=== PATIENT | female | born 1940 | race Caucasian/White ===

== ENCOUNTER 2017-02-01 13:41 | Inpatient (IN) | payer MEDICARE, MEDICAID ==
[~2017-02-01] VITALS: Ht 154.9 cm; Wt 70.6 kg
--- NOTE | ~2017-02-01 | ENPV ---
Vascular Lower Extremities DVT Study Procedure Demographics Patient Name DANITZA SANTACRUZ Date of Study 02/01/2017 Patient Number [id number] Gender Female Date of 1940 Age 76 Visit Number [id number] Height 60 Accession Number [id number] Weight 168.43 Referring Saul Luna MD Interpreting Rodney Johns MD Physician Dino Reyes MD Physician Physician Ordering Physician Dino Reyes MD Engraving Supervisor Baker Apprentice Chet Sorenson T, [facility] Conclusions Summary No evidence of deep vein thrombosis or superficial thrombophlebitis in the left lower extremity. Procedure Type of Study: Veins:Lower Extremities DVT Study, Lower Extremity Left. Indications for Study:Swelling and Pain. Appropriate Use Criteria:6 Allergies - Sulfa. - Other:(hydralazine). Patient Status:Routine. Study Location:ER. Technical Quality:Adequate visualization. - Preliminary reported to:Amparo Oconnor. Risk Factors - The patient's risk factor(s) include: insulin-treated diabetes mellitus and treated arterial hypertension. - The patient's last creatinine was 0.9 mg/dl. Velocities are measured in cm/s ; Diameters are measured in cm Right Lower Extremities DVT Study Measurements Right 2D and Doppler Measurements + + + + +------+------+ + !Location !Visualized!Compressibility!Thrombosis!Signal!Reflux!Reflux ! ! ! ! ! ! ! !(sec) ! + + + + +------+------+ + !GSV Thigh !Yes !Yes !None !Phasic! ! ! + + + + +------+------+ + !Common !Yes !Yes !None !Phasic! ! ! !Femoral ! ! ! ! ! ! ! + + + + +------+------+ + Left Lower Extremities DVT Study Measurements Left 2D and Doppler Measurements + + + + +------+------+ + !Location !Visualized!Compressibility!Thrombosis!Signal!Reflux!Reflux ! ! ! ! ! ! ! !(sec) ! + + + + +------+------+ + !GSV Thigh !Yes !Yes !None !Phasic! ! ! + + + + +------+------+ + !Common !Yes !Yes !None !Phasic! ! ! !Femoral ! ! ! ! ! ! ! + + + + +------+------+ + !Prox !Yes !Yes !None !Phasic! ! ! !Femoral ! ! ! ! ! ! ! + + + + +------+------+ + !Mid Femoral!Yes !Yes !None !Phasic! ! ! + + + + +------+------+ + !Dist !Yes !Yes !None !Phasic! ! ! !Femoral ! ! ! ! ! ! ! + + + + +------+------+ + !Popliteal !Yes !Yes !None !Phasic! ! ! + + + + +------+------+ + !PTV !Yes !Yes !None !Phasic! ! ! + + + + +------+------+ + !Peroneal !Yes !Yes !None !Phasic! ! ! + + + + +------+------+ + Signature dtt: Mckinley Stevens dtgrzegorz: 02/01/17 1619 Physician Self Edit
--- NOTE | ~2017-02-01 | HP ---
PATIENT'S NAME: DANITZA SANTACRUZ [facility] AGE: 76 Y [address] ROOM: [place] [address] LOCATION: GPCU ADMIT DATE: 02/01/2017 History & Physical DISCHARGE DATE: FAMILY PHYSICIAN: Jeremy Hughes MD ATTENDING PHYSICIAN: Gissel GRAYSON DATE OF SERVICE: CHIEF COMPLAINT: Left foot pain. HISTORY OF PRESENT ILLNESS: The patient is a 76-year-old female with past medical history of breast cancer status post mastectomy and radiation, hypertension, and CVA with mild left- sided weakness and memory loss, who presented here with fever and left foot pain. The patient was brought in by family members including son and daughter. According to her daughter, the patient was admitted at [facility] on last and discharged last Friday. The patient was initially admitted at [place] with fatigue, fever, and weakness. The patient was treated there with IV fluids and antibiotic for UTI. The patient was discharged home, and the patient currently stays with daughter. Daughter reports that the patient has been having intermittent fever for the past month or so. Etiology of her fever has not been clearly identified yet. Daughter reports that since her discharge, the patient had fever. Her temperature today was 100.7, and also the patient was noted to have left foot pain. Daughter reports that she has noted redness and swelling around her dorsum of the foot. She noticed that yesterday. She also reports that today, the patient could not bear weight on her left foot. The patient denies any trauma or cut around foot and discharge. She also denies chest pain, shortness of breath, abdominal pain, nausea, vomiting, diarrhea, and constipation. The patient has been losing weight lately due to poor appetite. She also reports of generalized fatigue. MEDICAL HISTORY: 1. Breast cancer, status post mastectomy and radiation. 2. Stroke in 2000 with mild left-sided weakness. 3. Hypertension. 4. Diabetes mellitus, type 2. 5. Nocturnal hypoxia and uses oxygen at night. SURGICAL HISTORY: Mastectomy. FAMILY HISTORY: Father had dementia and mother had coronary artery disease. PATIENT'S NAME: DANITZA SANTACRUZ [facility] AGE: 76 Y [address] ROOM: [place] [address] LOCATION: GPCU ADMIT DATE: 02/01/2017 History & Physical DISCHARGE DATE: FAMILY PHYSICIAN: Jeremy Hughes MD ATTENDING PHYSICIAN: Gissel GRAYSON SOCIAL HISTORY: Distant history of smoking, last smoked in 1989. 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 MEDICATIONS: Currently being reconciled. REVIEW OF SYSTEMS: All systems have been reviewed, and are negative except for what I mentioned in the HPI. PHYSICAL EXAMINATION: VITAL SIGNS: Temperature was 100.9 on admission, blood pressure was 154/91, respiratory rate was 15, pulse was 80, and saturating 90% on room air. GENERAL APPEARANCE: The patient was alert and awake, in no acute distress. HEAD: Normocephalic and atraumatic. NOSE: No nasal discharge. MOUTH: Moist oral mucosa. EARS: No ear discharge. CHEST: Clear to auscultation bilaterally. HEART: Grade 2 systolic murmur was heard on the left lower sternal border. ABDOMEN: Soft, nontender, and nondistended. Bowel sounds were present. SKIN: Left foot dorsum erythema, swollen, and tenderness to touch. Erythema border was marked. Also, noted mild swelling around erythema. No discharge was noted, and no fluctuance is noted. MUSCULOSKELETAL: Range of motion was intact. However, left foot pain was elicited when the patient pressed down on my hand. SAP BUSINESS OBJECTS CONSULTANT: Alert and oriented x3. Motor and sensory were grossly intact, with maybe mild left-sided weakness and with +4/5 strength. LABORATORY DATA AND DIAGNOSTIC STUDIES: Lactate of 2.2. White blood cell count of 8.5, hemoglobin of 10.4, and platelets of 273. Glucose of 134, BUN of 13, creatinine of 1, sodium of 140, potassium of 4.0, chloride of 101, and CO2 of 27. UA: White blood cell count was 0 to 2, rbc was 2 to 5, and epithelial was 10 to 20. EKG: Normal sinus rhythm. CT of chest with contrast showed no signs of PE. Venous Doppler: Preliminary report with no DVT of left lower extremity. PATIENT'S NAME: DANITZA SANTACRUZ [facility] AGE: 76 Y [address] ROOM: [place] [address] LOCATION: GPCU ADMIT DATE: 02/01/2017 History & Physical DISCHARGE DATE: FAMILY PHYSICIAN: Jeremy Hughes MD ATTENDING PHYSICIAN: Gissel GRAYSON ASSESSMENT AND PLAN: 1. Left foot cellulitis. The patient is a 76-year-old female with history of diabetes mellitus, type 2, who presented with left foot cellulitis. The patient reports that she has a history of fever that has been going on for a month or so. There is no definite etiology that she has been diagnosed. We will start the patient on vancomycin and Zosyn; vancomycin for Gram-negative bacteria and we will add Zosyn for coverage of Gram- negative as the patient also is diabetic. Since the patient has this ongoing fevers that has been going on for one month, and also patient is coming with cellulitis and unable to bear weight on the foot, we want to rule out osteomyelitis. We will acquire MRI of left foot with and without contrast. Blood culture has been taken in the Emergency Department. We will await blood culture. 2. Diabetes mellitus, type 2. We will hold metformin as the patient has a CTA with contrast. Start the patient on sliding-scale insulin. 3. Hypertension. Hold LOWELL inhibitor for now. Continue labetalol. Blood pressure is stable. 4. Nocturnal hypoxia. To continue use of oxygen at night. 5. History of breast cancer, status post mastectomy and radiation. Currently on anastrozole. We will continue anastrozole during stay. 6. Physical deconditioning. We will consult PT and OT during stay. I have personally reviewed the patient's medical record including, but not limited to blood work and radiology report. Total time spent with patient is greater than 70 minutes, more than 50% of the time was spent in direct patient care and patient consultation. Case was reviewed with the patient and Nursing Staff. All questions were answered to the patient's satisfaction. We will admit the patient for cellulitis. Code status is DNR, but okay for intubation. MD AMY RILEY/modl /[id number] D: [id number] T: [id number] HISTORY & PHYSICAL
--- NOTE | ~2017-02-01 | ECHO ---
Transthoracic Echocardiography Report (TTE) Demographics Patient Name DANITZA SANTACRUZ Date of Study 02/03/2017 Patient Number [id number] Visit Number [id number] Date of 1940 Room Number G6321 Gender Female Number Age 76 year(s) Referring Saul Luna Horizontal Boring Mill Operator Megan RVT, RDCS Physician MD Huizar Physician Interpreting Carlos Hurd Naphthalene Still Operator Physician Julio Lane MD Supervising Ordering Shawna Foster MD, MD/MLP Physician Nurse Stress Parts Salesman Conclusions Contractility Score Summary Normal Left Ventricular contractility was noted. Summary Hyperdynamic LV systolic function. The estimated left ventricular ejection fraction is 70-75%. Asymmetric septal hypertrophy. Diastolic assessment reveals Grade I diastolic dysfunction. The left atrium is mildly dilated. Severe mitral annular calcification causing moderate mitral stenosis. Mean gradient across the valve is 9 mmHg. Mild MR. Resting LVOT velocity is 2.71 m/s, with a peak gradient of 29 mmHg suggestive of left ventricular outflow tract obstruction at rest. Procedure Type of Study TTE procedure:2D Echocardiogram, M-Mode, Doppler , Color Doppler. Procedure Date Date: 02/03/2017 Start: 08:45 AM Study Location: Inpatient Portable Technical Quality: Adequate visualization Indications:NSTEMI. Appropriate Use Criteria: 9 Patient Status: Routine Height: 60 inches HR: 101 bpm BP: 149/67 mmHg M-Mode/2D Measurements LV Diastolic Dimension: 4.26 cm LV Systolic Dimension: 2.01 cm LV Septum Diastolic: 1.93 cm LV PW Diastolic: 1.78 cm AO Root Dimension: 2.8 cm Cardiac Output: 9.65 l/min AV Cusp Separation: 1.7 cm RV Diastolic Dimension: 1.93 cm LA Dimension: 3.5 cm LA volume: 34 ml LVOT: 1.9 cm RV Base: 2 cm LVOT VTI: 33.7 cm RV Mid: 2.22 cm LV Stroke volume: 95.5 ml RV Length: 5.13 cm TAPSE: 1.78 cm TDI-S': 21.1 cm/s Doppler Measurements AV Peak Velocity: 1.95 m/s MV Peak E-Wave: 1.37 m/s AV Peak Gradient: 15.21 mmHg MV Peak A-Wave: 2.26 m/s AV Mean Gradient: 9 mmHg MV E/A Ratio: 0.61 LVOT Peak Velocity: 1.45 m/s MV P1/2t: 44 msec PV Peak Velocity: 1.57 m/s E' Lateral Velocity: 0.07 m/s PV Peak Gradient: 9.86 mmHg Findings Left Ventricle Asymmetric septal hypertrophy. Diastolic assessment reveals Grade I diastolic dysfunction. Right Ventricle Normal right ventricle structure and function. Left Atrium The left atrium is mildly dilated. Right Atrium Normal right atrial size. Mitral Valve Severe mitral annular calcification causing moderate mitral stenosis. Mean gradient across the valve is 9 mmHg. Mild MR. Aortic Valve Resting LVOT velocity is 2.71 m/s, with a peak gradient of 29 mmHg suggestive of left ventricular outflow tract obstruction at rest. The aortic valve is mildly sclerotic. Tricuspid Valve Trivial tricuspid regurgitation by color Doppler. Pulmonic Valve PV is not well visualized. Pericardial Effusion Epicardial fat pad noted. Pleural Effusion No evidence of pleural effusion. Contractility Score LV regional wall motion:(0-Non visualized 1-Normal 2-Hypokinesis 3-Akinesis 4-Dyskinesis 5-Aneurysm) Signature dtt: DESEAN GÓMEZ dtd: 02/03/17 0845 Physician Self Edit
--- NOTE | ~2017-02-01 | CON ---
PATIENT'S NAME: DANITZA SANTACRUZ [facility] AGE: 76 Y [address] ROOM: [place] [address] LOCATION: GPCU ADMIT DATE: 02/01/2017 Consultation DISCHARGE DATE: FAMILY PHYSICIAN: Jeremy Hughes MD ATTENDING PHYSICIAN: Gissel GRAYSON DATE OF CONSULTATION: 02/03/2017 REFERRING PHYSICIAN: YING COELLO MD CHIEF COMPLAINT: Chest heaviness. REASON FOR CONSULTATION: ST depressions and chest and back pain. HISTORY OF PRESENTING ILLNESS: The patient is a poor historian. She came in to the ER with her daughter who reports that she was in the hospital in [place] in January for UTI and she was discharged on antibiotics. She came here to [place] to stay with her family and on the last day, she has had increasing swelling and redness in her left foot. She was admitted and treated for cellulitis. She really does not have any other acute complaints. Yesterday, her blood pressure was in the 180s and she was given 20 mg of hydralazine following which she had an anaphylactic- type reaction to it. She was short of breath, could not breathe. She started having chest heaviness, pain radiating to her back as well as diaphoresis. They did treat her according to the NEXUS protocol and she improved significantly, but continued to have some chest pressure radiating to the back. EKG was performed and she had significant ST depressions that were new in leads V4 to V6 about 3 mm. After nitroglycerin drip was started, her chest pain essentially resolved. This morning, she is quite comfortable. She is slow to respond. She does not report any chest pain, heaviness, or trouble breathing. She is on home O2. She does have a remote history of smoking. She quit about 10 years ago. This morning, she is comfortable during the interview and does not have any acute complaints. ALLERGIES: SULFA. MEDICATIONS: Please see MAR. PAST MEDICAL HISTORY: 1. Zcp-itphjrs-zlhtnkjsv diabetes. PATIENT'S NAME: DANITZA SANTACRUZ [facility] AGE: 76 Y [address] ROOM: [place] [address] LOCATION: GPCU ADMIT DATE: 02/01/2017 Consultation DISCHARGE DATE: FAMILY PHYSICIAN: Jeremy Hughes MD ATTENDING PHYSICIAN: Gissel GRAYSON 2. CVA in 2000. 3. History of dementia. 4. Hand tremors. PAST SURGICAL HISTORY: Left mastectomy with radiation therapy two years ago for left breast cancer. SOCIAL HISTORY: She is from [place], but she is now staying with her family in [place]. No tobacco, drug, or alcohol abuse. She quit smoking 10 years ago. Family History; There is family history of CAD, no SCD. REVIEW OF SYSTEMS: All review of systems discussed with the patient. Pertinent positives and negatives mentioned in the history of presenting illness. PHYSICAL EXAMINATION: VITAL SIGNS: Blood pressure is 148/67, heart rate is 106, O2 saturations 96% on 3 L, and she is afebrile this morning. She is saturating 96%. Her temperature is 98.6. Her weight is 76.5. Is and Os 2909/2650, positive balance of 259. GENERAL: The patient is not in any apparent distress. Alert and awake. HEENT: Head is atraumatic and normocephalic. Mucous membranes are moist. EYES: Sclerae are white. No xanthelasmas. NEURO: She is able to move all extremities against gravity. SKIN: Warm and dry. HEART: S1 and S2. Tachycardic. 2/6 systolic murmur best heard in the right second intercostal space. LUNGS: Clear to auscultation bilaterally. ABDOMEN: Obese. Soft. Bowel sounds positive. EXTREMITY: Left lower extremity with edema and erythema. MUSCULOSKELETAL: Good range of motion. LABORATORY DATA: Sodium 142, potassium 3.4, chloride 106, CO2 of 23, glucose 216, BUN 10, creatinine 1, albumin 3.4, CPK 57, CK-MB 0.5, troponin 0.04 and then 0.049. CRP is 11.3. WBC 9.5, hemoglobin 9.4, hematocrit 29.6, and platelets are 263. CT scan preliminary report without any dissection. Chest x-ray, mild diffuse interstitial prominence, may reflect interstitial edema. EKG, normal sinus rhythm with [address] depressions in leads V4 to V6. IMPRESSION: 1. Acute coronary syndrome with cardiac biomarker elevation. Troponin 0.[address] depressions about 3 mm in V4 to V6 with complaints of chest pressure last night. PATIENT'S NAME: NOAM, DANITZA M [facility] AGE: 76 Y [address] ROOM: G6321 [place] [address] LOCATION: GPCU ADMIT DATE: 02/01/2017 Consultation DISCHARGE DATE: FAMILY PHYSICIAN: Jeremy Hughes MD ATTENDING PHYSICIAN: Gissel GRAYSON 2. Hypertensive urgency. 3. Diabetes mellitus, type 2. 4. Left lower extremity cellulitis. PLAN: At this time, given the acute coronary syndrome with ECG findings as well as troponin elevation and given all her risk factors, a cardiac cath is indicated and possible intervention if necessary. Risks and benefits of bleeding, bruising, infection 1 in 200 cases, risk of heart attack, , AL, stroke, CVA, bleed, contrast induced nephropathy, and emergency bypass discussed with patient and I also made a phone call and discussed all of this with her son, Alek Fox, and they are agreeable to proceed at this time with cardiac cath given the acute coronary syndrome. We will continue nitroglycerin and heparin drip. She is chest pain-free, so I am not taking her to the lab right now but if she does start having more chest pain, she may need a catheterization earlier. Continue bed rest. She can get up to the chair and sit if she is chest pain-free. Aggressive blood pressure control is also very important at this time. Thank you very much for the consultation. DESEAN GÓMEZ MD AT/modl /[id number] d: 02/03/17 1205 t: 02/05/17 1347, CONSULTATION REPORT
--- NOTE | ~2017-02-01 | ER ---
PATIENT'S NAME: DANITZA SANTACRUZ [facility] AGE: 76 Y [address] ROOM: [place] [address] LOCATION: GPCU ADMIT DATE: 02/01/2017 ER/Outpatient Report DISCHARGE DATE: FAMILY PHYSICIAN: Jeremy Hughes MD ATTENDING PHYSICIAN: Gissel SHEEHAN Time of Arrival: 1341 hours. Time of Evaluation: 1341 hours. CHIEF COMPLAINT: Redness of the left foot, swelling, and difficulty breathing. HISTORY OF PRESENT ILLNESS: The patient is a poor historian. She gives a mixed story regarding what brings her to the ER today. Her daughter is here with her, and her daughter reports that the patient was hospitalized [facility] in [place] on , January 23, 2017, through January 25, 2017, for a urinary tract infection and was discharged on home antibiotics of cefdinir. The patient came to [place] to stay with her daughter for her recuperation and daughter notes in the last 24 hours that she has had increased swelling and redness of the left foot. No trauma to the left foot is known. No open sores of the foot are seen. Daughter also states that the patient has had a cough this week. She noticed a fever today and cough has been dry. The patient denied having any chest pain. The patient denies feeling ill in any way. She has not been nauseated, has not vomited, has not had chest pain, has not had abdominal pain. ALLERGIES: SULFA. MEDICATIONS: On the chart and reviewed by me. PAST MEDICAL HISTORY: Xie-zqxyuoz-dzxkllwjk diabetes, stroke in 2000, dementia, hand tremors. PAST SURGICAL HISTORY: Left mastectomy with radiation 2 years ago for left breast cancer. SOCIAL HISTORY: She lives in [place]. She is now staying here in [place] with her daughter. Denies use of tobacco, drugs, or alcohol. REVIEW OF SYSTEMS: All negative other than those mentioned in the HPI. PATIENT'S NAME: DANITZA SANTACRUZ [facility] AGE: 76 Y [address] ROOM: [place] [address] LOCATION: GPCU ADMIT DATE: 02/01/2017 ER/Outpatient Report DISCHARGE DATE: FAMILY PHYSICIAN: Jeremy Hughes MD ATTENDING PHYSICIAN: Gissel SHEEHAN PHYSICAL EXAMINATION: VITAL SIGNS: She weighed 74.3 kg, blood pressure is 153/72, pulse is 72, respirations 26, temp of a 100.5 tympanic, O2 saturation 86% to 93% on room air. I did start her on 2 L of O2 on nasal cannula to keep her O2 sats above 93%. GENERAL: Awake, alert. Oriented to person, place and time. Respirations even, nonlabored. Skin pink, warm and dry. LUNGS: Clear, nonlabored bilaterally. HEART: Regular rate and rhythm. ABDOMEN: Soft, nondistended. Bowel sounds in all 4 quadrants. EXTREMETIES: Left foot is swollen, edematous, red, warm to touch. Positive peripheral pulses bilaterally. EMERGENCY ROOM COURSE: Saline lock was initiated. Lab work was drawn. EKG was completed. It shows sinus rhythm. CBC, white count is 8.6, hemoglobin is 10.4, hematocrit of 32.3. Her Chem panel is within normal limits. The GFR was 54. D-dimer was 1.47. Lactate was 2.2. Procalcitonin was 0.05. Cath UA was obtained, shows 0-2 white blood cells, rare bacteria. Fluids of normal saline were started. She was given a bolus of 500 mL and then it was turned down to 75 mL/hour. A CT scan of the chest was completed, it was negative for PE, did do a venous Doppler of the left leg, it is negative. The patient was given 1 gram of Rocephin IV. Patient reviewed with Dr. Sun. Dr. Sheehan, hospitalist was contacted regarding the patient. IMPRESSION: Cellulitis. PLAN: The patient will be placed in observation for IV therapy and treatment of the hospitalist. Family is aware of plan of care. JOSÉ MCELROY APRN FOR MD MILA ALEXANDER/[place] /[id number] d: 02/01/171939 t: 02/11/171933, OUTPATIENT REPORT
--- NOTE | ~2017-02-01 | DS ---
PATIENT'S NAME: DANITZA SANTACRUZ [facility] AGE: 76 Y [address] ROOM: G6321 [place], [place] [address] LOCATION: GPCU ADMIT DATE: 02/01/2017 Discharge Summary DISCHARGE DATE: 02/06/2017 FAMILY PHYSICIAN: Jeremy Hughes MD ATTENDING PHYSICIAN: Sissy Chauhan FINAL DIAGNOSES: 1. Left leg cellulitis. 2. Jab-ST-omgpnlb elevation myocardial infarction subsequent PCI of the RCA with a drug-eluting stent, also with a 60% mid LAD lesion. 3. Hypertensive emergency. 4. Anaphylactic reaction to hydralazine. 5. Acute hypoxic respiratory failure. 6. Anemia. 7. Diabetes mellitus type 2. 8. History of cerebrovascular accident. 9. Mild dementia. 10. Hand tremor, benign, essential. 11. History of left breast cancer, status post mastectomy and radiation, 2014. Please see the history and physical dictated by Dr. Sheehan for details of admission. In short, the patient had been treated for cellulitis as an outpatient. It was felt that it was not improving. LABORATORY DATA ON ADMISSION: Sodium 140, discharge 139; potassium on admission was 4.5, got as low as 3.4, discharge is 3.8; BUN on admission was 13, discharge 15; creatinine on admission was 1, discharge was 1; alkaline phosphatase on admission was 77; AST 10; ALT 24; cholesterol was 128; triglycerides 90; HDL 50; LDL 60; iron was 42; total iron binding capacity 202; percent saturation 21. Her CRP on admission was 11.3. Troponin on admission was less than 0.04. Troponin on the was initially less than 0.04, then did continue to rise to reach max of 0.245. White blood cell count on admission was 8.5 with 76% neutrophils, hemoglobin 10.4, hematocrit 32.3, and platelet count 273. Her hemoglobin did drop to 7.9 on the 30th, it was 8.4 later on the 30, and most prior to discharge it was 9.8. Platelet count at discharge was 289. Sedimentation rate on admission was 56. Procalcitonin on admission was less than 0.5. Urinalysis on admission had 0-2 whites, 2-5 reds. MICROBIOLOGY: Blood culture was negative. RADIOLOGY DATA: Chest x-ray on admission was no evidence of pneumonia. PE PATIENT'S NAME: DANITZA SANTACRUZ [facility] AGE: 76 Y [address] ROOM: [address] [place], [place] [address] LOCATION: GPCU ADMIT DATE: 02/01/2017 Discharge Summary DISCHARGE DATE: 02/06/2017 FAMILY PHYSICIAN: Jeremy Hughes MD ATTENDING PHYSICIAN: Sissy Chauhan protocol CT on admission did not show a PE. She did have cardiomegaly. MRI of her leg did not show any evidence of osteomyelitis. Chest x-ray on the did show some consolidation and bilateral effusion. CARDIOVASCULAR DATA: Echocardiogram showed her ejection fraction to be 70%- 75%. She had diastolic dysfunction, moderate mitral stenosis. Her peak gradient was 29. Catheterization findings had 80% mid RCA. She had a 60% focal stenosis of the mid LAD. HOSPITAL COURSE: The patient was admitted with a diagnosis of left foot cellulitis. She was admitted to the hospital and placed on IV Zosyn. An MRI was obtained of the leg because of the significant amount of edema as well as a Doppler. She was put on sliding scale insulin. She was loaded with IV vancomycin. Her leg did improve significantly. The next day we were able to stop the vancomycin and Zosyn, and she was put on Ancef. She then had significantly elevated blood pressure. She then did receive some IV hydralazine. She then had an anaphylactic reaction and required Solu-Medrol, Benadryl, and ranitidine. She did on telemetry show some ST depression. Cardiac enzymes were obtained, and they were mildly elevated and did continue to rise. She did improve from the anaphylactic-type reaction. A CT scan of the chest was done to rule out any injury. Once her troponins were elevated, she was started on a heparin drip, given aspirin, placed on a beta-elidia. Echocardiogram was obtained. She was also put on IV nitroglycerin to help control the blood pressure. She was seen in consultation by Dr. Barton, who felt that she in fact had a non-STEMI and that she needed to probably proceed to the corn lab technician. Her beta-elidia dose was adjusted. She did go to the corn lab technician on the , at which time, she did have a PTCA and stent placed in the right coronary artery. Please see Dr. Barton's note for full details. Her leg was improved. We were able to take her off the Ancef and put her on Keflex. We worked to wean her oxygen. Her hemoglobin was noted to be low. It was repeated and is actually higher. She did begin having some issues with shortness of breath, and she received a dose of IV Lasix early in the morning on the , which she responded to nicely. It was felt that she probably needed another dose and was given a dose of IV Bumex in the evening for which she diuresed 5 L of fluid and was able to be weaned off her oxygen. During this timeframe, the family had indicated that they would like to move her to [place] to an assisted living. It was felt that she needed stay in a skilled facility to regain some of her strength. The patient was seen and evaluated by [facility], and they felt that she would be a candidate for admission. She was transferred to [facility] on February 06. DISCHARGE INSTRUCTIONS: See Dr. Eden as her primary care provider in 5- PATIENT'S NAME: DANITZA SANTACRUZ [facility] AGE: 76 Y [address] ROOM: [place] [address] LOCATION: GPCU ADMIT DATE: 02/01/2017 Discharge Summary DISCHARGE DATE: 02/06/2017 FAMILY PHYSICIAN: Jeremy Hughes MD ATTENDING PHYSICIAN: Sissy Chauhan [address] Barton, admissions clerk. Follow up in 2 weeks. MEDICATIONS: 1. Arimidex 1 mg daily. 2. Aspirin 81 mg daily. 3. Lipitor 40 mg daily. 4. Norvasc 10 mg daily. 5. Keflex 500 mg 3 times daily, stop date February 10. 6. Hydrochlorothiazide 25 mg daily. 7. Mild sliding scale insulin. 8. Imdur 60 mg daily. 9. Prinivil 40 mg daily. 10. Mag oxide 400 mg twice daily. 11. Lopressor 25 mg twice daily. 12. Multivitamin daily. 13. Brilinta 90 mg twice daily. 14. Tylenol 650 mg every 4 hours as needed for ezxy-iu-fiddekht pain. 15. Dextrose 25 mL for hypoglycemia. 16. Glucagon 1 mg subcu for hypoglycemia. 17. Glucose 16 g p.o. for hypoglycemia. 18. Nitrostat 0.4 mg sublingual p.r.n. chest pain. Repeat q.5 minutes x3. 19. Glucophage 500 mg twice daily. 20. Prilosec 20 mg daily. 21. Vitamin D 1000 units daily. I did speak with her children regarding this discharge. Dr. Eden agreed to be her primary provider. She is to have weightbearing as tolerated. She had been using oxygen at 2 L at night. LAMINE ORTIZ MD LAW/modl /[id number] CC: MD Marv Campa MD d: 02/07/17 0311 t: 02/14/17 1833, DISCHARGE SUMMARY
--- NOTE | ~2017-02-01 | CATH ---
Cardiac Diagnostic + PCI Report Demographics Patient Name NOAM Duarte Gender Female Date of 1940 Age 76 year(s) Patient Number [id number] Date of Study 02/04/2017 Visit Number [id number] Room Number G6321 [employer] Ht 152.4 cm Wt 76.4 kg Referring Sissy Chauhan Primary Physician Physician Performing Julio Secondary Physician Physician Ariana SCHNEIDER Diagnostic [facility] Assisting Physician Physician Ariana SCHNEIDER Interventional [facility] Physician Basin Finish Operator Tig Welder Physician Ariana SCHNEIDER Findings and Conclusions Diagnostic Findings and Conclusion 1. Severe 80% lesion in mid RCA, diffusely diseased, ectatic and calcified vessel. 2. NSTEMI. 3. Focal 60% stenosis in the mid LAD at the site of septal branch. Diagnostic Recommendations 1. PCI of RCA. Interventional Findings and Conclusion 1. S/P successful PCI of RCA with DAVI. Interventional Recommendations Medical management. Patient will be observed overnight. Continue current medications. Hydration and followup creatinine. Patient has been instructed to not lift anything more than 5 pounds for 1 week. Aggressive risk factor management. Aggressive medical therapy for coronary artery disease. Statin. ASA. Beta Vandana. Dual Anti-platelet therapy. Optimization of medical therapy as an outpatient. Cardiac diet . Referral to Cardiac Rehabilitation now and at discharge . Procedure Description The patient was brought to the diagnostic cardiac catheterization-EP laboratory in the fasting, non-sedated state. Informed consent was obtained in the written and verbal form after the risks and benefits were explained. The patient had no further questions and agreed to proceed. The planned puncture-incision site(s) were shaved and prepped with ChloraPrep and draped in the usual sterile manner. Conscious sedation, supplemental oxygen, and pain control medications were delivered by a registered nurse under physician guidance. Surface ECG rhythm, blood pressure measurement, and pulse oximetry were monitored throughout the procedure. Arterial access. The access site was infiltrated with lidocaine. The vessel was entered with the Seldinger technique. A sheath was advanced into the vessel and used for catheter placement. Left heart catheterization. A catheter was advanced across the aortic valve to the left ventricle under fluoroscopic guidance. Resting hemodynamics were obtained. Selective right coronary angiography. A catheter was advanced into the right coronary vessel ostium under fluoroscopic guidance. Contrast was injected by hand. Images were obtained in multiple projections. Selective left coronary angiography. A catheter was advanced into the left coronary vessel ostium under Fluoroscopic guidance. Contrast was injected by hand. Images were obtained in multiple projections. Angioplasty and Stent Placement: A guiding catheter was used to intubate the vessel. A 0.14 wire was then used to cross the lesion. A balloon catheter was placed across the lesion and inflated. The balloon catheter was then removed. A Drug Eluting Stent was placed and inflated. Post placement angiograms were performed. Arterial artery hemostasis was achieved. The patient was transferred to a regular nursing floor via cart accompanied by a nurse. The patient left the laboratory in stable condition. Diagnostic Cath Status: Urgent Interventional Cath Status: Urgent Procedure Procedure Type Diagnostic procedure:Angiography:, Coronary Angios w/[facility] PCI procedure:Drug Eluting Coronary Stent:, RCA Indications: Chest pain with positive enzymes and ECG changes. The procedure was explained in detail to the patient. Risks, complications and alternative treatments were reviewed. Written consent was obtained. Medications Reviewed with Patient prior to Procedure. Angiographic Findings Dominance: Right Cardiac Arteries and Lesion Findings LMCA: Normal (0% Stenosis). LCx: Abnormal. Lesion on Mid CX: Mid subsection.20% stenosis . Lesion on 2nd Ob Nicolasa: Ostial.50% stenosis . RCA: Abnormal.aneurismal calcific Lesion on Mid RCA: Mid subsection.80% stenosis 28 mm length reduced to 0%. Pre procedure ALLEN III flow was noted. Post Procedure ALLEN III flow was present. The guidewire cross was successful.The lesion was diagnosed as a moderate risk lesion.Culprit lesion. Devices used - Runthrough NS .014 x 180. Number of passes: 1. - Emerge Balloon 3.0 x 30. 1 inflation(s) to a max pressure of: 14 sona. - Runthrough NS .014 x 180. Number of passes: 1. - Promus Premier 4.0 x 28 Stent. 1 inflation(s) to a max pressure of: 14 sona. - NC Emerge Balloon 4.0 x 20. 1 inflation(s) to a max pressure of: 16 sona. Lesion on Dist RCA: Distal subsection.50% stenosis . Lesion on R PDA: Ostial.50% stenosis . LAD: Focal stenosis.There is a focal 60% stenosis at the site of septal branch. More distally after D2 branch there is a tubular 50% stenosis. Lesion on Mid LAD: Mid subsection.60% stenosis . Lesion on 1st Diag: Proximal subsection.10% stenosis . Coronary Tree Procedure Data Procedure Date Date: 02/04/2017Start: 09:00 AMEnd: 09:44 AM Entry Locations - Antegrade Percutaneous access was performed through the Right Radial artery (Primary location). A 6 Fr sheath was inserted. Unsuccessful closure attempt was performed using: an R band. Hemostasis was successfully obtained using Mechanical Compression. Closure Comments: R- Band applied by Ahmet. 14 cc's of air.. Procedure Medications Order and Administration + + + + + !Time !Medication !Dosage !Route ! + + + + + !02/04/2017 08:44 !Oxygen !1 l/min !NC ! !AM ! ! ! ! + + + + 02/04/2017 08:56 !Versed !1 mg !I.V. ! !AM ! ! ! ! + + + + + 02/04/2017 09:04 !Fentanyl !25 mcg !I.V. ! !AM ! ! ! ! + + + + + 02/04/2017 09:05 !Radial Verapamil !2.5 mg !I.A. ! !AM ! ! ! ! + + + + + !02/04/2017 09:06 !Heparin (ACC_3) !5000 units !I.V. bolus ! !AM ! ! ! ! + + + + + !02/04/2017 09:08 !Oxygen !2 l/min !NC ! !AM ! ! ! ! + + + + + 02/04/2017 09:17 !Angiomax (Bivalirudin) !55 mg !I.V. bolus ! !AM !(ACC_5) ! ! ! + + + + + !02/04/2017 09:18 !Angiomax (Bivalirudin) !1.75 mg/kg/hr!I.V. drip ! !AM !(ACC_5) ! ! ! + + + + + !02/04/2017 09:31 !Atropine !0.5 mg !I.V. ! !AM ! ! ! ! + + + + + !02/04/2017 09:42 !Brilinta (Ticagrelor) !180 mg !P.O. ! !AM !(ACC_20) ! ! ! + + + + + Devices Used - A5 Fr. BS JR 4 Diag. Catheterwas used for:Right coronary angiography. - A5 Fr. BS JL 3.5 Diag. Catheterwas used for:Left coronary angiography. - A6 Fr. JR4 Guide Catheter. Contrast Material - Isovue 42580 ml Fluoroscopy Time: Diagnostic: 10:18 minutes. Total: 10:18 minutes. Fluoroscopy Dose: Diagnostic: 1135 mGy. Total: 1135 mGy. Estimated Blood Loss: 20 ml. Additional [facility] PCI Information PCI Indication:PCI for high risk Non-STEMI or unstable angina. Medical History Performed Procedures and Imaging Results - Echocardiographywas performed.(EF 70%). Allergies - Sulfa. - Other:(hydralazine). Risk Factors The patient risk factors include:cerebrovascular disease, treated hypertension, family history of premature CAD, insulin-treated diabetes mellitus, last creatinine: 0.9 mg/dl and creatinine clearance: 62.13 ml/min. Admission Data Admission Date: 02/01/2017 Admission Time: 04:40 PM Admit Source: Other Insurance Payors: Medicare. Admission Medications + +------+------+ + + + + !Medication !Dosage!Times !Last !Last !Administered !Comments ! ! ! !Per !Delivery !Delivery ! ! ! ! ! !Day !Date !Time ! ! ! + +------+------+ + + + + !LOWELL ! ! ! ! !Yes ! ! !Inhibitor ! ! ! ! ! ! ! !(any) ! ! ! ! ! ! ! + +------+------+ + + + + !Aspirin ! ! ! ! !Yes ! ! !(any) ! ! ! ! ! ! ! + +------+------+ + + + + !Beta Vandana! ! ! ! !Yes ! ! !(any) ! ! ! ! ! ! ! + +------+------+ + + + + !Statin (any)! ! ! ! !Yes ! ! + +------+------+ + + + + Clinical Evaluation Leading to Procedure - The patient's CAD presentation was assessed as: Non-STEMI. - The patient's anginal syndrome during the past two weeks was assessed as: Class IV according to the [place] Cardiovascular Society Classification System (CCS). Anti-anginal medications were prescribed during the past two weeks. The medication is: Beta Blockers. - The patient has been in a state of heart failure within the past two weeks. - The patient's heart failure status was assessed as NYHA Class II, with CHF symptoms of GARCIA. Snapshots Hemodynamics Condition: Rest O2 Consumption: Estimated: 170.20Heart Rate: 90 bpm Pressures (mmHg) +-----+ + !Site !Pressure ! +-----+ + !LV !134/7 ,19 ! +-----+ + !LV !133/9 ,18 ! +-----+ + !AO !137/70 (99) ! +-----+ + Shunts Oxygen Values O2 Capacity 107.44 O2 Consumption 170.2 Signatures dtt: ARIANA GÓMEZ dtd: 02/04/17 0900 Physician Self Edit
[2017-02-01 14:24] LABS: BASOPHIL % 0.2 %; EOSINOPHIL # 0.1 K/uL (0.0-0.5); EOSINOPHIL % 1.6 %; HEMATOCRIT 32.3 % (33.0-46.0); HEMOGLOBIN 10.4 g/dL (10.0-15.0); IMMATURE GRANULOCYTE # 0.1 K/uL (0.0-0.3); IMMATURE GRANULOCYTE % 0.8 %; LYMPHOCYTE # 1.1 K/uL (0.8-4.0); LYMPHOCYTE % 12.6 %; MCHC 32.2 gm/dL (32.0-36.5); MCV 87.1 fl (83.0-98.0); MONOCYTE # 0.7 K/uL (0.0-1.0); MONOCYTE % 8.1 %; MPV 8.8 fl (9.4-12.4); NEUTROPHIL # (ANC) 6.5 K/uL (1.8-7.8); NEUTROPHIL % 76.7 %; NRBC % 0 /100WBC (0-0.00); PLATELET COUNT 273 K/uL (150-450); RBC 3.71 M/uL (3.50-5.50); RDW-CV 14.5 % (11.9-14.6); WBC 8.5 K/uL (4.0-11.0)
[2017-02-01 14:32] LABS: INR - (THERAPEUTIC) 1.03 (0.92-1.07); PROTIME 10.8 SECONDS (9.8-11.4); PTT 26 SECONDS (25-32)
[2017-02-01 14:40] LABS: ALBUMIN 3.4 gm/dL (3.5-5.0); ANION GAP 16.5 (10.0-19.0); CALCIUM 8.9 mg/dL (8.5-10.5); POTASSIUM 4.5 mMol/L (3.7-5.1); TOTAL PROTEIN 7.7 g/dL (6.0-8.4)
[2017-02-01 15:32] LABS: BILIRUBIN URINE NEGATIVE (NEGATIVE); BLOOD URINE 10 /UL (NEGATIVE); COLOR URINE YELLOW (YELLOW); GLUCOSE URINE NEGATIVE (NEGATIVE); KETONE URINE 5 mg/dL (NEGATIVE); LEUKOCYTES URINE 25 /UL (NEGATIVE); NITRITE URINE NEGATIVE (NEGATIVE); PROTEIN URINE 30 mg/dL (NEGATIVE); SPEC GRAVITY URINE 1.015 (1.003-1.035); TURBIDITY URINE CLEAR (CLEAR); UROBILINOGEN URINE NORMAL (NORMAL)
[2017-02-01 15:47] LABS: WBC URINE 0-2 #/HPF (NEGATIVE)
[2017-02-01 15:48] LABS: AMORPHOUS URINE 1+ (NEGATIVE); BACTERIA URINE RARE (NEGATIVE)
[2017-02-01] MEDS ORDERED: ARIMIDEX1 MG PO (17:41)
[2017-02-01] MEDS ORDERED: ASPIRIN LO-DOSE81 MG PO (17:42)
[2017-02-01] MEDS ORDERED: PRINIVIL (ZESTR20 MG PO (17:43)
[2017-02-01] MEDS ORDERED: LIPITOR40 MG PO (17:43)
[2017-02-01] MEDS ORDERED: GLUCOPHAGE500 MG PO (17:44)
[2017-02-01] MEDS ORDERED: LOPRESSOR25 MG PO (17:44)
[2017-02-01] MEDS ORDERED: MAGOX 400400 MG PO (17:44)
[2017-02-01] MEDS ORDERED: PRILOSEC20 MG PO (17:45)
[2017-02-01] MEDS ORDERED: THERAGRAN-M1 TAB PO (17:45)
[2017-02-01] MEDS ORDERED: VITAMIN D1000 UNIT PO (17:46)
[2017-02-01] MEDS ORDERED: OMNICEF 300MG300 MG PO (17:47)
[2017-02-02 02:45] LABS: CREATININE 1.1 mg/dL (0.5-1.1)
[2017-02-03 00:53] LABS: CPK 63 IU/L (21-215)
[2017-02-03 01:44] LABS: ANION GAP 14.9 (10.0-19.0); BLOOD UREA NITROGEN 10 mg/dL (6-24); CALCIUM 8.6 mg/dL (8.5-10.5); CHLORIDE 106 mMol/L (96-110); CO2 23 mMol/L (22-32); CREATININE 0.9 mg/dL (0.5-1.1); POTASSIUM 3.9 mMol/L (3.7-5.1); SODIUM 140 mMol/L (135-145)
[2017-02-03 01:45] LABS: ESTIMATED GFR (MDRD EQUATION) > 60
[2017-02-03 04:00] LABS: BASOPHIL % 0.4 %; EOSINOPHIL # 0.1 K/uL (0.0-0.5); EOSINOPHIL % 0.8 %; HEMATOCRIT 29.6 % (33.0-46.0); HEMOGLOBIN 9.4 g/dL (10.0-15.0); IMMATURE GRANULOCYTE # 0.1 K/uL (0.0-0.3); IMMATURE GRANULOCYTE % 0.6 %; LYMPHOCYTE # 1.2 K/uL (0.8-4.0); LYMPHOCYTE % 12.9 %; MCH 28.1 pg (27.0-34.0); MCHC 31.8 gm/dL (32.0-36.5); MCV 88.4 fl (83.0-98.0); MONOCYTE # 0.3 K/uL (0.0-1.0); MONOCYTE % 2.7 %; MPV 8.9 fl (9.4-12.4); NEUTROPHIL # (ANC) 7.8 K/uL (1.8-7.8); NEUTROPHIL % 82.6 %; NRBC % 0 /100WBC (0-0.00); PLATELET COUNT 263 K/uL (150-450); RBC 3.35 M/uL (3.50-5.50); RDW-CV 14.4 % (11.9-14.6); WBC 9.5 K/uL (4.0-11.0)
[2017-02-03 04:17] LABS: ANION GAP 16.4 (10.0-19.0); CALCIUM 8.5 mg/dL (8.5-10.5); POTASSIUM 3.4 mMol/L (3.7-5.1)
[2017-02-03 04:19] LABS: CPK 57 IU/L (21-215)
[2017-02-03 06:10] LABS: INR - (THERAPEUTIC) 1.03 (0.92-1.07); PROTIME 10.8 SECONDS (9.8-11.4)
[2017-02-03 09:12] LABS: ALBUMIN 2.9 gm/dL (3.5-5.0); ANION GAP 18.8 (10.0-19.0); CALCIUM 8.8 mg/dL (8.5-10.5); CREATININE 1.2 mg/dL (0.5-1.1); POTASSIUM 3.8 mMol/L (3.7-5.1); TOTAL PROTEIN 7.3 g/dL (6.0-8.4)
[2017-02-03 09:13] LABS: TOTAL BILIRUBIN 0.6 mg/dL (0.0-1.5)
[2017-02-03 16:35] LABS: ANION GAP 18.7 (10.0-19.0); CALCIUM 8.8 mg/dL (8.5-10.5); CREATININE 1.1 mg/dL (0.5-1.1); POTASSIUM 4.7 mMol/L (3.7-5.1)
[2017-02-04 03:57] LABS: HEMATOCRIT 25.4 % (33.0-46.0); MCH 27.7 pg (27.0-34.0); MCHC 31.1 gm/dL (32.0-36.5); MCV 89.1 fl (83.0-98.0); MPV 9.2 fl (9.4-12.4); PLATELET COUNT 247 K/uL (150-450); RBC 2.85 M/uL (3.50-5.50); RDW-CV 14.4 % (11.9-14.6); WBC 7.7 K/uL (4.0-11.0)
[2017-02-04 04:03] LABS: HEMOGLOBIN 7.9 g/dL (10.0-15.0)
[2017-02-04 04:29] LABS: ANION GAP 14.8 (10.0-19.0); BLOOD UREA NITROGEN 12 mg/dL (6-24); CALCIUM 8.7 mg/dL (8.5-10.5); CHLORIDE 109 mMol/L (96-110); CO2 25 mMol/L (22-32); CREATININE 0.9 mg/dL (0.5-1.1); ESTIMATED GFR (MDRD EQUATION) > 60; POTASSIUM 4.8 mMol/L (3.7-5.1); SODIUM 144 mMol/L (135-145)
[2017-02-04 06:14] LABS: ABSOLUTE NEUTROPHIL CT (ANC) 6.9 K/uL (1.8-7.8); BANDED NEUTROPHILS % 13 %; LYMPHOCYTE # 0.8 K/uL (0.8-4.0); LYMPHOCYTE % 10 %; SEGMENTED NEUTROPHIL # 5.9 K/uL (1.8-7.8); SEGMENTED NEUTROPHIL % 77 %
[2017-02-05 03:22] LABS: BASOPHIL % 0.2 %; EOSINOPHIL # 0.2 K/uL (0.0-0.5); EOSINOPHIL % 2.3 %; HEMATOCRIT 27.8 % (33.0-46.0); HEMOGLOBIN 8.9 g/dL (10.0-15.0); IMMATURE GRANULOCYTE % 0.5 %; LYMPHOCYTE # 0.8 K/uL (0.8-4.0); LYMPHOCYTE % 9.6 %; MCH 28.4 pg (27.0-34.0); MCV 88.8 fl (83.0-98.0); MONOCYTE # 0.5 K/uL (0.0-1.0); MONOCYTE % 5.6 %; MPV 8.9 fl (9.4-12.4); NEUTROPHIL # (ANC) 6.7 K/uL (1.8-7.8); NEUTROPHIL % 81.8 %; NRBC % 0 /100WBC (0-0.00); PLATELET COUNT 289 K/uL (150-450); RBC 3.13 M/uL (3.50-5.50); RDW-CV 14.7 % (11.9-14.6); WBC 8.2 K/uL (4.0-11.0)
[2017-02-05 03:52] LABS: ALBUMIN 2.9 gm/dL (3.5-5.0); ANION GAP 12.4 (10.0-19.0); CALCIUM 8.7 mg/dL (8.5-10.5); POTASSIUM 4.4 mMol/L (3.7-5.1); TOTAL BILIRUBIN 0.5 mg/dL (0.0-1.5); TOTAL PROTEIN 6.8 g/dL (6.0-8.4)
[2017-02-05 15:10] LABS: ANION GAP 11.7 (10.0-19.0); CREATININE 1.1 mg/dL (0.5-1.1); MAGNESIUM 2.1 mg/dL (1.8-2.6); POTASSIUM 3.7 mMol/L (3.7-5.1)
[2017-02-05 18:19] LABS: ALBUMIN 3.3 gm/dL (3.5-5.0); ANION GAP 11.9 (10.0-19.0); CALCIUM 9.1 mg/dL (8.5-10.5); CREATININE 1.1 mg/dL (0.5-1.1); MAGNESIUM 2.1 mg/dL (1.8-2.6); PHOSPHORUS 4.7 mg/dL (2.5-4.9); POTASSIUM 3.9 mMol/L (3.7-5.1)
[2017-02-06 05:48] LABS: ANION GAP 13.8 (10.0-19.0); CALCIUM 9.1 mg/dL (8.5-10.5); PHOSPHORUS 5.1 mg/dL (2.5-4.9); POTASSIUM 3.8 mMol/L (3.7-5.1)
== END 2017-02-06 11:30 | DRG 981 ==
LOC: GMED 13:41 → GPCU 16:40
PROVIDERS: Emergency Medicine; Internal Medicine; Internal Medicine Interventional Cardiology; Nurse Practitioner Family; ADMIT Internal Medicine
PROC: B216YZZ Fluoroscopy of Right and Left Heart using Other Contrast (ICD-10-PCS; principal; 2017-02-04)
PROC: 027034Z Dilation of Coronary Artery, One Artery with Drug-eluting Intraluminal Device, Percutaneous Approach (ICD-10-PCS; principal; 2017-02-04)
PROC: 4A023N7 Measurement of Cardiac Sampling and Pressure, Left Heart, Percutaneous Approach (ICD-10-PCS; principal; 2017-02-04)
PROC: B211YZZ Fluoroscopy of Multiple Coronary Arteries using Other Contrast (ICD-10-PCS; principal; 2017-02-04)
DX: L03.116 Cellulitis of left lower limb (principal); I21.4 Non-ST elevation (NSTEMI) myocardial infarction; J96.01 Acute respiratory failure with hypoxia; N17.9 Acute kidney failure, unspecified; I24.9 Acute ischemic heart disease, unspecified; I69.954 Hemiplegia and hemiparesis following unspecified cerebrovascular disease affecting left non-dominant side; T88.6XXA Anaphylactic reaction due to adverse effect of correct drug or medicament properly administered, initial encounter; Z66 Do not resuscitate; F03.90 Unspecified dementia, unspecified severity, without behavioral disturbance, psychotic disturbance, mood disturbance, and anxiety; E11.9 Type 2 diabetes mellitus without complications; I10 Essential (primary) hypertension; I16.0 Hypertensive urgency; T46.5X5A Adverse effect of other antihypertensive drugs, initial encounter; D64.9 Anemia, unspecified; I05.0 Rheumatic mitral stenosis; E83.42 Hypomagnesemia; Z79.82 Long term (current) use of aspirin; Z85.3 Personal history of malignant neoplasm of breast; Z88.2 Allergy status to sulfonamides; Z87.891 Personal history of nicotine dependence
CPT/HCPCS: A9270; A9577; C1725; C1769; C1874; C1887; C9113; C9600; J0171; J0360; J0461; J0583; J0690; J0696; J1200; J1644; J1650; J1940; J2060; J2250; J2270; J2543; J2930; J3010; J3370; J3475; J7030; J7050; J7060; J7120; J7612; Q9967

== ENCOUNTER → 2017-02-11 | Outpatient (CLI) | payer MEDICARE, MEDICAID ==
[~2017-02-11] MED LIST: ARIMIDEX1 MG PO; ASPIRIN LO-DOSE81 MG PO; BRILINTA90 MG PO; FEOSOL325 MG PO; GLUCAGON 1 MG PE1 MG SUB-Q; GLUCOPHAGE500 MG PO; GLUCOSE4 GM PO; ISOSORBIDE MONO60 MG PO; LIPITOR40 MG PO; LOPRESSOR25 MG PO; MAGOX 400400 MG PO; NORVASC10 MG PO; OMNICEF 300MG300 MG PO; OXYGEN M-15 INH; PRILOSEC20 MG PO; PRINIVIL (ZESTR20 MG PO; PROTONIX40 MG PO; THERAGRAN-M1 TAB PO; TYLENOL325 MG PO; VITAMIN D1000 UNIT PO
== END ==
LOC: LGSMG 11:00
DX: R06.02 Shortness of breath (principal)

== ENCOUNTER → 2017-02-12 | Outpatient (CLI) | payer MEDICARE, MEDICAID | END | disposition disaster alternative care site (69) | LOC: GRAD 09:30 | DX: M10.30 Gout due to renal impairment, unspecified site (principal); Q79.1 Other congenital malformations of diaphragm; K80.20 Calculus of gallbladder without cholecystitis without obstruction ==

== ENCOUNTER → 2017-02-13 | Outpatient (CLI) | payer MEDICARE, MEDICAID | LOC: LGSMG 14:47 | DX: E11.65 Type 2 diabetes mellitus with hyperglycemia (principal); N17.9 Acute kidney failure, unspecified; I10 Essential (primary) hypertension ==

== ENCOUNTER 2017-03-10 12:00 | Inpatient (IN) | payer MEDICARE, MEDICAID ==
[~2017-03-10] VITALS: Ht 152.4 cm; Wt 67.1 kg
--- NOTE | ~2017-03-10 | HP ---
PATIENT'S NAME: DANITZA SANTACRUZ [facility] AGE: 76 Y [address] ROOM: [place] [address] LOCATION: GPCU ADMIT DATE: 03/10/2017 History & Physical DISCHARGE DATE: FAMILY PHYSICIAN: JUNIOR WARNER MD ATTENDING PHYSICIAN: SHERIDAN REDMOND DATE OF SERVICE: CHIEF COMPLAINT: Shortness of breath. HISTORY OF PRESENT ILLNESS: A 76-year-old, very pleasant lady with a recent non ST-segment elevation myocardial infarction with PCI to the RCA on February 04, chronic respiratory failure, type 2 diabetes, and history of CVA, presented to the primary care physician's office with shortness of breath. From the last discharge from the hospital, she was sent to a alf facility where she was doing pretty well and she was taken to [place] by the daughter. After coming back from [place], she presented to PCP with shortness of breath which really has been going on for 4 or 5 days now, present on rest as well as on exertion. She on my encounter, denied any cough, any palpitation, but did endorse SOB which she says it is also worse at nighttime, gets worse with lying flat, did not endorse having any leg swelling or any leg pain. On for further review of systems, she said that she does not have any headache, any dizziness, any trouble with the eyes, any abdominal pain, any constipation, any diarrhea, any burning on urination. No fever or chills were reported either. REVIEW OF SYSTEMS: All other systems were reviewed and were negative except what is mentioned in the HPI. PAST MEDICAL HISTORY: Coronary artery disease, status post PCI on dual antiplatelet. PCI date was 03/07/2017. History of breast cancer status post mastectomy and radiation. Stroke in 2000. Hypertension. Type 2 diabetes mellitus. Nocturnal hypoxia on 2 L of oxygen at home. Acute gouty arthropathy on allopurinol. SURGICAL HISTORY: Mastectomy. FAMILY HISTORY: Father had dementia and mother had coronary artery disease. SOCIAL HISTORY: PATIENT'S NAME: DANITZA SANTACRUZ [facility] AGE: 76 Y [address] ROOM: [place] [address] LOCATION: GPCU ADMIT DATE: 03/10/2017 History & Physical DISCHARGE DATE: FAMILY PHYSICIAN: JUNIOR WARNER MD ATTENDING PHYSICIAN: SHERIDAN REDMOND A Former smoker. MEDICATIONS: Medications are being reconciled right now. PHYSICAL EXAMINATION: VITAL SIGNS: Blood pressure is 131/68, 58, saturating 95% on 3 L of oxygen, respiratory rate of 20. GENERAL: No acute distress. Alert and oriented x3. HEENT: Head atraumatic, normocephalic. Eyes nonicteric. No pallor. Oropharynx, moist mucous membranes. CARDIOVASCULAR: S1, S2. No murmurs, gallops, or rubs. LUNGS: Clear to auscultation bilaterally. ABDOMEN: Soft, nontender, nondistended. Bowel sounds are present. EXTREMITIES: No clubbing, cyanosis, or edema noted. PSYCH: Normal affect, mood, and speech. NEURO: Cranial nerves 2 through 12 intact. No motor or sensory deficit noted today. MUSCULOSKELETAL: No muscle tenderness or joint swelling noted. SKIN: No bruises or rashes noted. Pallor present. LAB WORK: From Dr. Warner's office shows sodium of 144, potassium 4.5, chloride 109, bicarb 24, BUN 23, creatinine 1.2, mag of 2.1, hemoglobin of 6.1. A chest x- ray was also done, which per my read did not show any acute infiltrate at this time. There could be cephalization of the vessels, but we will wait for the official report for now. ASSESSMENT/PLAN: 1. Acute blood loss anemia. 2. Acute on chronic hypoxic respiratory failure. 3. Heart failure with preserved ejection fraction, acute exacerbation. 4. Coronary artery disease, status post drug-eluting stent to RCA. 5. Type 2 diabetes mellitus. 6. History of cerebrovascular accident, tremors, left breast cancer status post mastectomy, history of gout. 7. History of hypertension. 8. Hyperlipidemia, hyperkalemia present on admission. PLAN: We are going to admit this patient. We are going to start resuscitation with 1 unit of packed red blood cells. We will give small doses of Lasix at this point as well, given her heart failure. Monitor serial H and H after the transfusion. We are going to obtain serum ferritin, iron transferrin levels, as well as folic acid level. GI consultation will be placed. GI tract is PATIENT'S NAME: DANITZA SANTACRUZ [facility] AGE: 76 Y [address] ROOM: [place] [address] [facility] ADMIT DATE: 03/10/2017 History & Physical DISCHARGE DATE: FAMILY PHYSICIAN: JUNIOR WARNER MD ATTENDING PHYSICIAN: SHERIDAN REDMOND most likely the cause of this anemia. She is on dual antiplatelet with aspirin and Brilinta and we need to find out the cause of bleeding on an urgent basis at this point. We will continue the supplemental oxygen. SCDs for DVT prophylaxis. We will monitor this patient and do what is necessary based on the testing and recommendation from the consultants. I spent 1 hour in taking care of this patient, which including reviewing of the chart and talking with the primary care physician Dr. Warner, talking to Gastroenterology CREATIVE SERVICES INTERN, Dania Hadley. 50% of time was spent in providing direct care to the patient, talking with the patient, and explaining what is happening and answering questions. The patient is a DNR/DNI. MD BRANDI HATCH/[place] /[id number] D: [id number] T: 830 HISTORY & PHYSICAL
--- NOTE | ~2017-03-10 | DS ---
PATIENT'S NAME: DANITZA SANTACRUZ [facility] AGE: 76 Y [address] ROOM: [place] [address] LOCATION: GPCU ADMIT DATE: 03/10/2017 Discharge Summary DISCHARGE DATE: 03/13/2017 FAMILY PHYSICIAN: Marv Eden MD ATTENDING PHYSICIAN: Harris Major FINAL DIAGNOSES: 1. Acute blood loss anemia, status post 2 units of packed red blood cells. 2. Acute on chronic hypoxic respiratory failure. 3. Coronary artery disease, status post percutaneous transluminal coronary angioplasty with a drug-eluting stent to the right coronary artery on previous admission. 4. Acute diastolic congestive heart failure. 5. Iron deficiency. 6. Diabetes mellitus, type 2, controlled. 7. Essential hypertension. 8. History of breast cancer. Please see the history and physical dictated by Dr. Lor Major. In short, the patient presented to her primary care, to Dr. Eden's office on March 10, with complaints of shortness of breath. She was found to have a drop in her hemoglobin, and the concern was that she was bleeding secondary to anti-platelet medication required for her drug-eluting stent. LABORATORY DATA: Sodium at discharge 141, potassium 3.8, chloride 106, CO2 28, BUN 11, creatinine 0.9, and magnesium 1.5. Hemoglobin on admission was 7 and then next check was 8.8 and from then it remained stable, the highest of it was 9 on March 12, at discharge it was 8.9; white blood cell count on discharge was 3.4; platelet count on discharge 284. Her iron was 18, total iron binding capacity was 257, percent saturation was 7. Her proBNP on admission was 1362. Cardiac enzymes on admission were negative. RADIOLOGIC DATA: Chest x-ray done in the primary care office prior to admission showed atelectasis at the left lung base and elevation of her hemidiaphragm. HOSPITAL COURSE: The patient was admitted with a diagnosis of acute blood loss anemia. The suspicion was that she was having a GI bleed related to her anti-platelet medication. She was admitted and placed on IV Protonix. She was felt to be in acute diastolic heart failure and given a dose of IV Lasix. Her iron studies were obtained and she was typed and crossed. GI was consulted and did see her and feel that she needed to have EGD and colonoscopy. With her hemoglobin at 7 and with congestive heart failure, it was felt that she needed a unit of blood and transfused 1 unit right after admission. Her hemoglobins were followed closely. She then got a 2nd unit of blood later in the evening on March 10. This was followed by diuretics as PATIENT'S NAME: DANITZA SANTACRUZ [facility] AGE: 76 Y [address] ROOM: [address] [place] [id number] LOCATION: GPCU ADMIT DATE: 03/10/2017 Discharge Summary DISCHARGE DATE: 03/13/2017 FAMILY PHYSICIAN: Marv Eden MD ATTENDING PHYSICIAN: Harris Major. EGD and colonoscopy were performed by Dr. Hodges on March 11. The EGD showed antral gastritis and a hiatal hernia. The colonoscopy showed extensive diverticula in the sigmoid colon and transverse colon. Biopsies were not taken. The patient was brought back to the room and actually felt great. Her diet was resumed. Dr. Hodges did feel that we could go ahead and restart all of her anti-platelet medications. When reviewing the iron studies, it was felt that she was significantly iron deficient, she was given a dose of IV iron on March 11, , and on the day of discharge. She was continued to be monitored. Her hemoglobin remained stable at 8.9. Her supplemental oxygen was able to be weaned to her pre-admission levels. PT and OT did see her. It was felt that she was stable for discharge and discharged on March 13. The thought was that she would benefit from a capsule endoscopy which could be performed as an outpatient. DISCHARGE INSTRUCTIONS: Follow up in GI Clinic in 2 weeks. She is to follow up with Dr. Eden in 3-5 days. MEDICATIONS: 1. Norvasc 10 mg daily. 2. Arimidex 1 mg daily. 3. Aspirin 81 mg daily. 4. Lipitor 40 mg daily. 5. Vitamin D 1000 units daily. 6. Prinivil 40 mg daily. 7. Magnesium oxide 400 mg twice daily. 8. Metoprolol 25 mg twice daily. 9. Multivitamin daily. 10. Protonix 40 mg twice daily. 11. Brilinta 90 mg twice daily. 12. Metformin 500 mg twice daily. 13. Imdur 60 mg daily, hold if her systolic blood pressure is less than 120. 14. Tylenol 650 mg every 4 hours as needed. 15. Glucagon Pen 1 mg subcutaneous as needed for low blood sugars. 16. Dextrose 16 g as needed for hypoglycemia. 17. Feosol 325 mg twice daily, she is advised to take it with 2 ounces of orange juice. I have contacted Dr. Eden regarding this discharge. LAMINE ORTIZ MD LAW/modl PATIENT'S NAME: DANITZA SANTACRUZ [facility] AGE: 76 Y [address] ROOM: [place] [address] [facility] AD[facility] DATE: 03/10/2017 Discharge Summary DISCHARGE DATE: 03/13/2017 FAMILY PHYSICIAN: Marv Eden MD ATTENDING PHYSICIAN: Harris Major /[id number] CC: Marv Eden MD d: 03/13/17 1806 t: 03/20/17 1820, DISCHARGE SUMMARY
--- NOTE | ~2017-03-10 | CON ---
PATIENT'S NAME: DANITZA SANTACRUZ [facility] AGE: 76 Y [address] ROOM: [address] [place] [id number] LOCATION: GPCU ADMIT DATE: 03/10/2017 Consultation DISCHARGE DATE: FAMILY PHYSICIAN: JUNIOR WARNER MD ATTENDING PHYSICIAN: SHERIDAN REDMOND DATE OF CONSULTATION: 03/10/2017 REASON FOR CONSULTATION: Acute blood loss anemia. HISTORY OF PRESENT ILLNESS: This is a pleasant 76-year-old female who is transferred from an outside facility with shortness of breath. The patient recently had a non-ST- segment elevation myocardial infarction with PCI to the RCA on February 04. The patient also has a history of chronic respiratory failure, type 2 diabetes, and history of CVA. She presented to her primary care's office with shortness of breath at rest and with ambulation. She was evaluated at the outside facility and then transferred to [facility]. On admission to [facility], she was found to have hemoglobin of 7.0. She did receive 1 unit of packed red blood cells for anemia. In questioning the patient, at one point, the patient did state that she noticed black stools though is slightly a poor historian on giving any more details. The patient does recall undergoing an upper endoscopy and colonoscopy greater than 5 years ago though she cannot provide any more details of this. The patient denies any acute abdominal pain, chest pain, shortness of breath, nausea, or vomiting at the time of her examination. She did have a recent episode of vomiting prior to admission though denies any hematemesis. PAST MEDICAL HISTORY: Coronary artery disease, status post PCI on dual antiplatelet, PCI date was 03/07/2017; history of breast cancer, status post mastectomy and radiation; CVA in 2000; hypertension; type 2 diabetes mellitus; nocturnal hypoxia on 2 L oxygen at home; and acute gouty arthropathy, on allopurinol. PAST SURGICAL HISTORY: Mastectomy, upper endoscopy and colonoscopy greater than 5 years ago. SOCIAL HISTORY: The patient is a former smoker. She denies any alcohol or illicit drug use. FAMILY HISTORY: The patient's father had dementia. The patient's mother had coronary artery PATIENT'S NAME: DANITZA SANTACRUZ [facility] AGE: 76 Y [address] ROOM: [address] [place], [place] [address] LOCATION: GPCU ADMIT DATE: 03/10/2017 Consultation DISCHARGE DATE: FAMILY PHYSICIAN: JUNIOR WARNER MD ATTENDING PHYSICIAN: SHERIDAN REDMOND disease. ALLERGIES: SULFA, HYDRALAZINE CAUSES ANAPHYLAXIS. CURRENT MEDICATIONS: Please refer to the medication administration record. REVIEW OF SYSTEMS: All-point review of systems was completed. All were negative except for those identified in the history of present illness. PHYSICAL EXAMINATION: GENERAL: A very pleasant, 76-year-old female, lying in bed, who appears to be in no acute distress. VITAL SIGNS: Temperature 98.6, pulse of 67, respirations of 22, blood pressure 130/61, and oxygen saturations 99% on 2 L nasal cannula. SKIN: Slightly pale, warm, and dry. No jaundice. HEENT: Head is normocephalic and atraumatic. Pupils are equal, round, and reactive to light. Sclerae are clear and nonicteric. Oral mucosa is pink and moist. No thyromegaly. NECK: Soft and supple. CARDIOVASCULAR: Regular. Normal S1 and S2. RESPIRATORY: Respirations are even and unlabored. LUNGS: Clear to auscultation. ABDOMEN: Soft, round, nontender, and nondistended. Bowel sounds are positive x4 quadrants. MUSCULOSKELETAL: No muscle weakness or atrophy. EXTREMITIES: No clubbing, cyanosis, or edema noted. NEUROLOGICAL: Grossly nonfocal. LABORATORY DATA AND DIAGNOSTIC DATA: Hemoglobin on admission to [facility] was 7.0. Hematocrit was 22.2. Iron studies completed showed iron of 18, TIBC of 257, and percent saturation of 7. Vitamin B12 of 645. Folate 32.7. Ferritin of 18.60. ASSESSMENT AND PLAN: Again, this is a very pleasant, 76-year-old female who was transferred from an outside facility with shortness of breath, and was found to have symptomatic acute blood loss anemia. In discussion with the Dr. Redmond, the patient is on Brilinta and aspirin for recent stent to the RCA. At this time, it is recommended for the patient to undergo an upper endoscopy and colonoscopy, diagnostic only. The patient should be continued on PPI therapy. Blood transfusion as needed until further evaluation of the upper endoscopy and colonoscopy. The patient also takes prednisone at home as well as aspirin and PATIENT'S NAME: DANITZA SANTACRUZ [facility] AGE: 76 Y [address] ROOM: [place] [address] [facility] AD[facility] DATE: 03/10/2017 Consultation DISCHARGE DATE: FAMILY PHYSICIAN: JUNIOR WARNER MD ATTENDING PHYSICIAN: SHERIDAN REDMOND as peptic ulcer disease should be ruled out. The risks, benefits, and alternatives of the procedure were discussed with the patient per Dr. Asif Hodges. Further recommendations to be given status post upper endoscopy and colonoscopy. Thank you for this consult. LISS MCFADDEN APRN FOR MD KAYLEE MORALES/modl /[id number] d: 03/11/17 1154 t: 03/16/17 0900, CONSULTATION REPORT
--- NOTE | ~2017-03-10 | OR ---
PATIENT'S NAME: DANITZA SANTACRUZ [facility] AGE: 76 Y [address] ROOM: [place] [address] LOCATION: GPCU ADMIT DATE: 03/10/2017 OR/Procedure Report DISCHARGE DATE: FAMILY PHYSICIAN: JUNIOR WARNER MD ATTENDING PHYSICIAN: SHERIDAN REDMOND SURGEON: Sheridan Redmond MD UPPER STITCHER: DATE OF PROCEDURE: 03/10/2017 PROCEDURE PERFORMED: Central venous catheterization. INDICATIONS: Lack of IV access and need for ongoing resuscitation for acute blood loss anemia. PROCEDURE IN DETAIL: Informed consent was obtained. Risks were explained including bleeding, infection, as well as pneumothorax. The patient agreed and decided to proceed with the procedure. Using ultrasonography, both IJs were inspected. Right IJ was identified for cannulation. A time-out was taken. The patient was identified and correct site was identified. The patient was prepped in sterile fashion. Local anesthesia was obtained with lidocaine 1% subdermally. Using ultrasonography, real-time trocar needle was advanced into the right IJ, with aspiration of oozing dark red blood. A guidewire was advanced through the needle. Needle was removed, and presence of the guidewire was confirmed in the right IJ using ultrasonography. Using blade 10, a small taurus was made adjacent to the guidewire. Dilatation was achieved with the dilator over the guidewire. Dilator was removed and central line was threaded over the guidewire, and guidewire was retrieved. Line was secured with sutures, cleaned, and draped properly. COMPLICATIONS: No immediate complications were noted. RESULTS: Post-line chest x-ray had been ordered, and does not reveal any pneumothorax and appears to be correct placement of the central line. MD BRANDI HATCH/[place] /[id number] d: 03/11/17 0004 t: 03/11/17 1059, OPERATIVE SUMMARY
[~2017-03-10 12:00] MED LIST changes: -BRILINTA90 MG PO; -FEOSOL325 MG PO; -GLUCAGON 1 MG PE1 MG SUB-Q; -GLUCOSE4 GM PO; -ISOSORBIDE MONO60 MG PO; -NORVASC10 MG PO; -OXYGEN M-15 INH; -PROTONIX40 MG PO; -TYLENOL325 MG PO
--- NOTE | 2017-03-10 13:51 | NUR ---
Pt is 76 y/o female admit for symptomatic anemia for hospitalist. GI to consult. Pt alert and oriented x3 but very forgetful and poor historian. Allergies to Sulfa,hydralazine. Hx CVA,tremors left hand,htn,murmur,non-stemi 1 mo ago with stent placed,breast CA,L)mastectomy,arthritis,frequent UTI, urgency/frequency,DM. Pt resides at [facility] assisted living. Red and yellow bracelet on. Son at bedside.
--- NOTE | 2017-03-10 16:37 | NUR ---
Significant event: Alert, oriented x3, but is forgetful, could not remember the name of the facility she lived at. VSS. On 2L NC, normally only wears 3L oxygen during the night at. Lung sounds clear/diminished upper, with fine crackles to lower lobes, given 20 mg IV lasix. Short of breath with activity. 2 IV's to R) arm SL'd. Had BM today, black in color and formed, checking for h-pylori. To have full w/u with GI in AM, prep tonight with suprep. Clear liquids until 0500 and then NPO, no red or purple liquids. Protonix given IV. SCD's to bilateral legs. To give 1 unit of blood when available, and recheck HH after transfusion is complete. Follow Up: Continue current POC
[2017-03-10] MEDS ORDERED: NORVASC10 MG PO (16:50)
[2017-03-10] MEDS ORDERED: BRILINTA90 MG PO (16:53)
--- NOTE | 2017-03-10 16:53 | NUR ---
SIGNIFICANT EVENT: Patient arrived to floor at 1245. Came from [address]-was taken to ER by her son. Ambulates SBA. Forgetful. VSS. Wears 2L O2. HR 50s-60s. SBP 130s-140s. Tachypneic. Hx of left mastectomy. 2 IV's to R) posterior forearm and R) wrist. Clear liquids only-to have colonoscopy in AM. Accuchecks ACHS. FOLLOW UP: Continue with current plan of care.
[2017-03-10] MEDS ORDERED: ISOSORBIDE MONO60 MG PO (16:55)
[2017-03-10] MEDS ORDERED: TYLENOL325 MG PO (17:02)
[2017-03-10] MEDS ORDERED: GLUCAGON 1 MG PE1 MG SUB-Q (17:03)
[2017-03-10] MEDS ORDERED: GLUCOSE4 GM PO (17:03)
[2017-03-10] MEDS ORDERED: OXYGEN M-15 INH (17:07)
[2017-03-10 22:46] LABS: HEMATOCRIT 22.2 % (33.0-46.0)
--- NOTE | 2017-03-11 04:12 | NUR ---
Significant Event: A&Ox3, forgetful. VSS on 2L O2. Bowel prep started for colonoscopy today. Patient did not want to drink prep, finished about half of each dose. Strongly encouraged to drink prep with each BSC visit. NPO at 0500. Central line placed in right jugular by Dr. Major this evening. Nurse draw for labs. Received 2 units PRBC tonight over 4 hours each. H&H to be drawn in 1 hour after transfusions. Goal is for HGB to be 8.0, if not notify . INC of bowl and bladder at times. 20mg IV lasix given. Pleasant with cares, can be uncooperative with care at times, refuses bowel prep at times. Follow up:
[2017-03-11 04:34] LABS: ANION GAP 11.4 (10.0-19.0); CALCIUM 7.8 mg/dL (8.5-10.5); CREATININE 1.1 mg/dL (0.5-1.1); POTASSIUM 4.4 mMol/L (3.7-5.1)
[2017-03-11 04:43] LABS: BASOPHIL % 0.6 %; EOSINOPHIL # 0.2 K/uL (0.0-0.5); HEMOGLOBIN 8.8 g/dL (10.0-15.0); IMMATURE GRANULOCYTE # 0.1 K/uL (0.0-0.3); IMMATURE GRANULOCYTE % 1.4 %; LYMPHOCYTE # 0.7 K/uL (0.8-4.0); LYMPHOCYTE % 19.2 %; MCH 29.5 pg (27.0-34.0); MCV 90.3 fl (83.0-98.0); MONOCYTE # 0.3 K/uL (0.0-1.0); MONOCYTE % 8.1 %; MPV 9.1 fl (9.4-12.4); NEUTROPHIL # (ANC) 2.4 K/uL (1.8-7.8); NEUTROPHIL % 65.7 %; NRBC % 0.6 /100WBC (0-0.00); PLATELET COUNT 277 K/uL (150-450); RBC 2.98 M/uL (3.50-5.50); WBC 3.6 K/uL (4.0-11.0)
[2017-03-11 04:46] LABS: HEMATOCRIT 26.9 % (33.0-46.0); MCHC 32.7 gm/dL (32.0-36.5); RDW-CV 17.7 % (11.9-14.6)
[2017-03-11 10:22] LABS: HEMATOCRIT 26.8 % (33.0-46.0); HEMOGLOBIN 8.6 g/dL (10.0-15.0)
[2017-03-11 18:38] LABS: HEMATOCRIT 27.6 % (33.0-46.0); HEMOGLOBIN 8.9 g/dL (10.0-15.0)
[2017-03-11 18:55] LABS: ANION GAP 9.7 (10.0-19.0); CALCIUM 7.9 mg/dL (8.5-10.5); CREATININE 1.1 mg/dL (0.5-1.1); POTASSIUM 3.7 mMol/L (3.7-5.1)
--- NOTE | 2017-03-12 04:30 | NUR ---
Significant Event: A&Ox3, forgetful. VSS on 2L O2 (home dose). HGB stable. Up to bathroom frequently with 50-150ml voids, transfers with 1PA-SBA assist, walker/GB. Central line dressing changed. RN draw. Pleasant and cooperative with cares. Follow up: Possible D/C today.
[2017-03-12 06:15] LABS: ALBUMIN 2.8 gm/dL (3.5-5.0); ANION GAP 8.8 (10.0-19.0); BLOOD UREA NITROGEN 11 mg/dL (6-24); CALCIUM 8.1 mg/dL (8.5-10.5); CHLORIDE 107 mMol/L (96-110); CO2 30 mMol/L (22-32); CREATININE 0.9 mg/dL (0.5-1.1); MAGNESIUM 1.6 mg/dL (1.8-2.6); PHOSPHORUS 2.8 mg/dL (2.5-4.9); POTASSIUM 3.8 mMol/L (3.7-5.1); SODIUM 142 mMol/L (135-145)
[2017-03-12 06:17] LABS: ESTIMATED GFR (MDRD EQUATION) > 60
[2017-03-12 06:20] LABS: BASOPHIL % 0.3 %; EOSINOPHIL # 0.2 K/uL (0.0-0.5); EOSINOPHIL % 4.7 %; HEMATOCRIT 27.7 % (33.0-46.0); IMMATURE GRANULOCYTE % 1.2 %; LYMPHOCYTE # 0.7 K/uL (0.8-4.0); LYMPHOCYTE % 20.5 %; MCH 29.2 pg (27.0-34.0); MCHC 32.5 gm/dL (32.0-36.5); MCV 89.9 fl (83.0-98.0); MONOCYTE # 0.3 K/uL (0.0-1.0); MONOCYTE % 9.4 %; NEUTROPHIL # (ANC) 2.2 K/uL (1.8-7.8); NEUTROPHIL % 63.9 %; NRBC % 0 /100WBC (0-0.00); PLATELET COUNT 284 K/uL (150-450); RBC 3.08 M/uL (3.50-5.50); RDW-CV 17.4 % (11.9-14.6); WBC 3.4 K/uL (4.0-11.0)
--- NOTE | 2017-03-12 13:57 | NUR ---
Introduced self and CM role to Joyce. She tells me that she lives at [facility] here in [facility] and she is planning on returning there upon dismissal. Joyce tells me that the staff at the [facility] does her medications for her while she is there. She gets around with a FWW at baseline and denies the need for any additional DME at this time. Joyce says that her son or someone from her family will come and pick her up when she is ready to dismiss. When I talked with her RN Tana, she told me that they are thinking that Joyce will be able to go back to [facility] either later today or tomorrow. She has no concerns about this. Saira' PCP is Dr.Jacob Stoner from [facility] in [place]. I asked if she was interested in being set up with a PCP here in [facility], but she denies this stating that, she is "happy with him and can have my son drive me there whenever I need to be seen." Let her know that this was fine and if she changed her mind she could let the nursing staff know and I would be happy to come back and talk with her about finding a local PCP. She denies any other questions, needs or concerns at this time. Left name on whiteboard for any other questions her or her family might have. CM to continue to follow and assist. Plan return back to [facility].
--- NOTE | 2017-03-12 17:33 | NUR ---
Significant Event:Patient remains forgetful, but is alert and oreintated. Up to bathroom frequently, sometimes not voiding at all. 2 small stools. Refused to sit in recliner for more than 1 hour today. 1L O2. No c/o pain. Appetite poor. Follow up:Home tomorrow?
[2017-03-13 04:05] LABS: HEMATOCRIT 27.9 % (33.0-46.0); HEMOGLOBIN 8.9 g/dL (10.0-15.0)
--- NOTE | 2017-03-13 04:09 | NUR ---
Significant Event: A/OX3, VSS ON 1L PER NC. NO COMPLAINTS OF PAIN. PT. GETS UP SBA-1A WITH WALKER/BELT TO BATHROOM, REPOSITIONS SELF IN BED. TRIPLE LUMEN RIGHT IJ IS SALINE LOCKED. REMOVED R)WRIST IV. D/C BACK TO [facility] TODAY. D/C MEDS ARE ON CHART. Follow up: CONTINUE WITH POC.
[2017-03-13 04:20] LABS: ALBUMIN 2.8 gm/dL (3.5-5.0); ANION GAP 10.8 (10.0-19.0); BLOOD UREA NITROGEN 11 mg/dL (6-24); CALCIUM 7.9 mg/dL (8.5-10.5); CHLORIDE 106 mMol/L (96-110); CO2 28 mMol/L (22-32); CREATININE 0.9 mg/dL (0.5-1.1); ESTIMATED GFR (MDRD EQUATION) > 60; MAGNESIUM 1.5 mg/dL (1.8-2.6); PHOSPHORUS 2.9 mg/dL (2.5-4.9); POTASSIUM 3.8 mMol/L (3.7-5.1); SODIUM 141 mMol/L (135-145)
[2017-03-13] MEDS ORDERED: PROTONIX40 MG PO (09:47)
[2017-03-13] MEDS ORDERED: FEOSOL325 MG PO (09:52)
--- NOTE | 2017-03-13 12:24 | NUR ---
1105 Reviewed Saira' chart, noticed that there were dismissal orders filled out on her to go back to [facility] today. GABY was in helping her go to the restroom when I went past. I phoned over to [facility], talked with Domitila, let her know that Joyce would be returning to them today and family would be transporting her back to them. She was fine with this. I faxed over orders to [facility] before Joyce left. NIKI Fajardo was going to call the son to let him know that she was ready to go so he could take her back to the [facility]. RN to RN number was left on the chart for report to be called when Joyce was ready to leave. Packet was started and no ID Screen was needed. CM to continue to follow and assist. Plan return back to [facility] today via personal auto with no [facility] needs identified.
--- NOTE | 2017-03-13 16:52 | NUR ---
D:Patient returning to [facility]. Her son, John, here to transport her to [address]. Patient excited to go back. Has her personal belongings. reviewed meds with patient and son, but the staff at the [facility] take care of meds, the son took a copy of meds and appointments. But stated that the staff take care of that. Courtsey packet sent with patient with prescriptions and instructions. Central line dc'd and off monitor. Did have some junctional rhythms, Dr. Mirza informed, adjusted medications. Patient has no c/o pain. Discharge per w/c per [facility] entrance at 1334. Released to son to return to [address].
== END 2017-03-13 13:30 | disposition disaster alternative care site (69) | DRG 377 ==
LOC: GPCU 12:34
PROVIDERS: Internal Medicine; Internal Medicine Adolescent Medicine; ADMIT Internal Medicine
PROC: 05HM33Z Insertion of Infusion Device into Right Internal Jugular Vein, Percutaneous Approach (ICD-10-PCS; principal; 2017-03-10)
PROC: 30233N1 Transfusion of Nonautologous Red Blood Cells into Peripheral Vein, Percutaneous Approach (ICD-10-PCS; principal; 2017-03-10)
PROC: B5131ZA Fluoroscopy of Right Jugular Veins using Low Osmolar Contrast, Guidance (ICD-10-PCS; principal; 2017-03-10)
PROC: 0DJ08ZZ Inspection of Upper Intestinal Tract, Via Natural or Artificial Opening Endoscopic (ICD-10-PCS; 2017-03-11)
PROC: 0DJD8ZZ Inspection of Lower Intestinal Tract, Via Natural or Artificial Opening Endoscopic (ICD-10-PCS; 2017-03-11)
DX: K92.2 Gastrointestinal hemorrhage, unspecified (principal); J96.21 Acute and chronic respiratory failure with hypoxia; I50.31 Acute diastolic (congestive) heart failure; D62 Acute posthemorrhagic anemia; I11.0 Hypertensive heart disease with heart failure; E11.9 Type 2 diabetes mellitus without complications; E78.5 Hyperlipidemia, unspecified; G47.34 Idiopathic sleep related nonobstructive alveolar hypoventilation; I25.10 Atherosclerotic heart disease of native coronary artery without angina pectoris; Z66 Do not resuscitate; M10.9 Gout, unspecified; Z95.5 Presence of coronary angioplasty implant and graft; K29.70 Gastritis, unspecified, without bleeding; K44.9 Diaphragmatic hernia without obstruction or gangrene; K57.90 Diverticulosis of intestine, part unspecified, without perforation or abscess without bleeding; Z99.81 Dependence on supplemental oxygen; Z85.3 Personal history of malignant neoplasm of breast; Z86.73 Personal history of transient ischemic attack (TIA), and cerebral infarction without residual deficits; T45.525A Adverse effect of antithrombotic drugs, initial encounter; Z90.10 Acquired absence of unspecified breast and nipple; Z88.2 Allergy status to sulfonamides; Z88.8 Allergy status to other drugs, medicaments and biological substances; Z87.891 Personal history of nicotine dependence
CPT/HCPCS: C9113; J0171; J1200; J1610; J1720; J1940; J2001; J2270; J2916; J7030; J7040; J7050; P9016

== ENCOUNTER → 2017-03-10 | Outpatient (CLI) | payer MEDICARE, MEDICAID | LOC: LGSMG 11:29 | DX: R06.02 Shortness of breath (principal); R07.89 Other chest pain; I70.0 Atherosclerosis of aorta; M41.9 Scoliosis, unspecified ==

== ENCOUNTER → 2017-03-18 | Outpatient (CLI) | payer MEDICARE, MEDICAID ==
[~2017-03-18] MED LIST changes: +BRILINTA90 MG PO; +FEOSOL325 MG PO; +GLUCAGON 1 MG PE1 MG SUB-Q; +GLUCOSE4 GM PO; +ISOSORBIDE MONO60 MG PO; +NORVASC10 MG PO; +OXYGEN M-15 INH; +PROTONIX40 MG PO; +TYLENOL325 MG PO
== END | disposition disaster alternative care site (69) ==
LOC: LGSMG 12:40
DX: D64.9 Anemia, unspecified (principal); R06.02 Shortness of breath

== ENCOUNTER 2017-03-24 11:59 | Emergency (ER) | payer MEDICARE, MEDICAID ==
--- NOTE | ~2017-03-24 | ER ---
PATIENT'S NAME: DANITZA SANTACRUZ [facility] AGE: 76 Y [address] ROOM: [place] [address] LOCATION: [facility] ADMIT DATE: 03/24/2017 ER/Outpatient Report DISCHARGE DATE: 03/24/2017 FAMILY PHYSICIAN: Marv Eden MD ATTENDING PHYSICIAN: Jareth Jones Time of Arrival: 12 noon. Time of Exam: 12 noon. CHIEF COMPLAINT: Chest pain. HISTORY OF PRESENT ILLNESS: Approximately 1 hour prior to arrival, the patient was just sitting when she developed chest pain. [facility] was contacted. When they got there, the patient was awake and alert. She does have a history of some dementia and they gave her four aspirin and one nitroglycerin. Did start an IV on her. Upon arrival to the ER, the patient states that she is feeling fine. She is not having any pain at this time. Does have a cough. She states she has had that for a while, is not coughing anything up that she can remember. She states when she had the chest pain, she did feel short of breath and lightheaded, but that is gone at this time. Nauseated, but no vomiting. Does have some general weakness. We did start her on some O2 en route. She states she wears oxygen at night, but otherwise she is not on oxygen on a regular basis. States the pain was in the center of her chest. Does not radiate anywhere. Does not have any arm pain or jaw pain. CURRENT MEDICATIONS: On her chart and were reviewed by me. ALLERGIES: ON HER CHART AND WERE REVIEWED BY ME. PAST MEDICAL HISTORY: Past MIs, cardiac issues, hypertension, hypoxia, gout, acute kidney failure, aao-lcpkqci-nngyaldui diabetes, seasonal allergies, hyperlipidemia. PAST SURGERIES: Include cardiac stents in December 2016 and left mastectomy. SOCIAL HISTORY: Denies use of tobacco, drugs, or alcohol. Lives at [facility]. Is independent with a walker. Eats independently. She is incontinent at that time. Her current mental status, the correction states is norm for her. PATIENT'S NAME: DANITZA SANTACRUZ [facility] AGE: 76 Y [address] ROOM: [place] [address] LOCATION: ED ADMIT DATE: 03/24/2017 ER/Outpatient Report DISCHARGE DATE: 03/24/2017 FAMILY PHYSICIAN: Marv Eden MD ATTENDING PHYSICIAN: Jareth Jones REVIEW OF SYSTEMS: All negative other than those mentioned in the HPI. PHYSICAL EXAMINATION: VITAL SIGNS: Weight 72.2 kg. Blood pressure is 135/63, pulse is 70, respirations 16, temperature of 97.6 orally, O2 saturation was 93% on room air. GENERAL: She is awake and alert, oriented to her surroundings. SKIN: [place], warm, and dry. RESPIRATIONS: Even and nonlabored. Lung sounds are clear. Decreased in the bases. HEART: Regular rate and rhythm. Monitor shows sinus rhythm. ABDOMEN: Soft and nondistended. Bowel sounds are present. EXTREMITIES: She does have some nonpitting pedal edema. Strong pedal pulses. LABORATORY DATA AND X-RAYS: Lab work was completed. CBC shows a white count of 4.8, hemoglobin of 8.1, hematocrit of 27. She was recently hospitalized with anemia and left with a hemoglobin of 8.9. She is scheduled to see the GI doctors on the 26 of March. Chem Panel: Sodium is 143, potassium is 4.1, chloride 109, BUN 15, creatinine 1.2. EGFR is 44. Cardiac enzymes were negative. EKG is unchanged from previous tracings. ProBNP was 406. Lactate was 2.7. Procalcitonin is negative. Acetone was negative. She is awake and alert, asked when she was going back. States that she is feeling fine and is ready to return to [facility]. Did repeat the cardiac enzymes. They came back negative. IMPRESSION: Mid epigastric chest pain. PLAN: The patient will be returned to [facility]. She is scheduled to see the financial aid advisor On March 26. She is to keep that appointment. Should return to the ER as symptoms warrant. She verbalized understanding. JOSÉ MCELROY APRN FOR MD MILA POOL/modl /[id number] d: 03/24/17 2303 t: 03/25/17 1553, OUTPATIENT REPORT
[2017-03-24 12:24] LABS: BASOPHIL # 0.1 K/uL (0.0-0.2); EOSINOPHIL # 0.3 K/uL (0.0-0.5); EOSINOPHIL % 6.1 %; HEMOGLOBIN 8.1 g/dL (10.0-15.0); IMMATURE GRANULOCYTE # 0.1 K/uL (0.0-0.3); IMMATURE GRANULOCYTE % 1.5 %; LYMPHOCYTE # 1.2 K/uL (0.8-4.0); MCV 96.8 fl (83.0-98.0); MONOCYTE # 0.4 K/uL (0.0-1.0); MONOCYTE % 7.9 %; MPV 9.2 fl (9.4-12.4); NEUTROPHIL # (ANC) 2.9 K/uL (1.8-7.8); NEUTROPHIL % 59.5 %; NRBC % 0 /100WBC (0-0.00); PLATELET COUNT 307 K/uL (150-450); RBC 2.79 M/uL (3.50-5.50); RDW-CV 16.6 % (11.9-14.6); WBC 4.8 K/uL (4.0-11.0)
[2017-03-24 12:35] LABS: INR - (THERAPEUTIC) 0.97 (0.92-1.07); PROTIME 10.2 SECONDS (9.8-11.4); PTT 25 SECONDS (25-32)
[2017-03-24 12:44] LABS: ALBUMIN 2.9 gm/dL (3.5-5.0); ALK PHOS 80 IU/L (33-138); ALT 21 IU/L (12-78); ANION GAP 13.1 (10.0-19.0); AST 14 IU/L (10-40); BLOOD UREA NITROGEN 15 mg/dL (6-24); CALCIUM 8.3 mg/dL (8.5-10.5); CHLORIDE 109 mMol/L (96-110); CO2 25 mMol/L (22-32); CPK 35 IU/L (21-215); CREATININE 1.2 mg/dL (0.5-1.1); MAGNESIUM 1.6 mg/dL (1.8-2.6); POTASSIUM 4.1 mMol/L (3.7-5.1); SODIUM 143 mMol/L (135-145); TOTAL BILIRUBIN 0.4 mg/dL (0.0-1.5); TOTAL PROTEIN 6.5 g/dL (6.0-8.4)
[2017-03-24 14:47] LABS: CPK 32 IU/L (21-215)
== END 2017-03-24 15:32 | disposition disaster alternative care site (69) ==
LOC: GMED 11:59
PROVIDERS: Nurse Practitioner Family
DX: R07.9 Chest pain, unspecified (principal); I25.2 Old myocardial infarction; I10 Essential (primary) hypertension; N17.9 Acute kidney failure, unspecified; E11.9 Type 2 diabetes mellitus without complications; E78.5 Hyperlipidemia, unspecified; M10.9 Gout, unspecified; R09.02 Hypoxemia; Z90.12 Acquired absence of left breast and nipple; Z98.890 Other specified postprocedural states; Z88.2 Allergy status to sulfonamides; Z88.5 Allergy status to narcotic agent; Z79.82 Long term (current) use of aspirin; Z79.899 Other long term (current) drug therapy

== ENCOUNTER → 2017-03-24 | Outpatient (CLI) | payer MEDICARE, MEDICAID | END | disposition disaster alternative care site (69) | LOC: GAMB 11:32 | DX: I20.9 Angina pectoris, unspecified (principal); R07.9 Chest pain, unspecified; R06.02 Shortness of breath; Z79.84 Long term (current) use of oral hypoglycemic drugs; Z79.899 Other long term (current) drug therapy | CPT/HCPCS: A0422; A0425; A0427 ==

== ENCOUNTER → 2017-04-08 | Outpatient (CLI) | payer MEDICARE, MEDICAID | LOC: LGSMG 11:03 | DX: M79.89 Other specified soft tissue disorders (principal) ==

== ENCOUNTER → 2017-04-15 | Outpatient (CLI) | payer MEDICARE, MEDICAID ==
--- NOTE | ~2017-04-15 | PUL ---
PATIENT'S NAME: DANITZA SANTACRUZ [facility] AGE: 76 Y [address] ROOM: [place] [address] LOCATION: [facility] ADMIT DATE: 04/15/2017 Pulmonary DISCHARGE DATE: FAMILY PHYSICIAN: JUNIOR WARNER MD ATTENDING PHYSICIAN: JUNIOR WARNER NAME OF PROCEDURE: Pulmonary Function Test DATE OF PROCEDURE: April 15, 2017 TECH: ATripe, CLEANING ATTENDANT REASON FOR EXAM: Dyspnea on exertion PROCEDURES PERFORMED: Spirometry with bronchodilator assessment. Measurement of maximum voluntary ventilation. Measurement of lung volumes. Measurement of diffusion capacity. RESULTS: Spirometry shows pre bronchodilator FVC was 1.72 liters or 81% of predicted, post bronchodilator FVC was 2.02 liters or 96% of predicted. Pre bronchodilator FEV1 was 1.63 liters or105% of predicted, post bronchodilator FEV1 was 1.76 liters or 113% of predicted. FEV1/FVC ratio was 95 or 128% of predicted. FEF 25-75% was 1.94 liters/second or 157% of predicted. Maximum voluntary ventilation was 48 liters/minute. This data did improve following an inhaled bronchodilator. The lung volumes showed total lung capacity was 4.63 liters or 124% of predicted. Functional residual capacity was 3.05 liters or 150% of predicted. And residual volume was 2.75 liters or 172% of predicted. Diffusing capacity not adjusted for hemoglobin was 35% of predicted. The single breath alveolar volume was 2.34 liters which is a poor estimate of total lung capacity. The flow volume loop is non-interpretable PHYSICIAN INTERPRETATION: The above data is consistent with borderline airflow limitation, which does respond to an inhaled bronchodilator with evidence of mild hyperexpansion and moderate gas trapping. There is severe gas transfer impairment which raise the possibility of co-existent pulmonary vascular disorder, clinical correlation recommended. MD JUAN JOSE DAO/ks PATIENT'S NAME: DANITZA SANTACRUZ [facility] AGE: 76 Y [address] ROOM: [place] [address] LOCATION: [facility] ADMIT DATE: 04/15/2017 Pulmonary DISCHARGE DATE: FAMILY PHYSICIAN: JUNIOR WARNER MD ATTENDING PHYSICIAN: JUNIOR WARNER /[id number] dtt: 04/17/17 1646 , JACQUI KRISHNAMURTHY dtd: 04/17/17 1101
== END | disposition disaster alternative care site (69) ==
LOC: GRTH 08:46
DX: R09.02 Hypoxemia (principal); R06.02 Shortness of breath; Z99.81 Dependence on supplemental oxygen

== ENCOUNTER → 2017-04-22 | Outpatient (CLI) | payer MEDICARE, MEDICAID | LOC: GBCOE 13:30 | DX: C50.412 Malignant neoplasm of upper-outer quadrant of left female breast (principal); M85.80 Other specified disorders of bone density and structure, unspecified site; Z79.899 Other long term (current) drug therapy; M81.0 Age-related osteoporosis without current pathological fracture ==

== ENCOUNTER → 2017-05-19 | Outpatient (CLI) | payer MEDICARE, MEDICAID ==
[2017-05-19 08:27] LABS: ALBUMIN 3.6 gm/dL (3.5-5.0); ANION GAP 14.5 (10.0-19.0); CALCIUM 8.8 mg/dL (8.5-10.5); POTASSIUM 4.5 mMol/L (3.7-5.1); TOTAL BILIRUBIN 0.4 mg/dL (0.0-1.5)
== END ==
PROVIDERS: Internal Medicine Interventional Cardiology
DX: I11.9 Hypertensive heart disease without heart failure (principal)